=== PATIENT | male | born 1950 | race Caucasian/White ===

== ENCOUNTER 2020-06-02 21:55 | Observation (INO) | payer MEDICARE, SELFPAY ==
[2020-06-02 21:57] VITALS: PULSE 73; RESP 12; O2SAT 90
[2020-06-02 21:58] VITALS: BP 133/73; PULSE 73; RESP 15; O2SAT 96
[2020-06-02 22:00] VITALS: BP 133/73; BP 134/75; PULSE 74; PULSE 76; RESP 12; RESP 16; O2SAT 97; O2SAT 98; BMI 42.3
[2020-06-02 22:17] LABS: Add Manual Diff / Slide Review NO; Basophils Absolute Auto 100 /uL (0-100); Basophils Percent Auto 0.9 % (0-2); Eosinophils Absolute Auto 500 /uL (0-450); Eosinophils Percent Auto 3.9 % (2-4); Hematocrit 44.8 % (41-53); Lymphocytes Absolute Auto 2800 /uL (1100-4500); Lymphocytes Percent Auto 19.9 % (25-40); Mean Corpuscular HGB Conc 33.4 % (30-36); Mean Corpuscular Hemoglobin 28.3 PG (26-34); Mean Corpuscular Volume 84.6 fL (80-100); Monocytes Absolute Auto 1000 /uL (0-900); Monocytes Percent Auto 7.2 % (3-14); Neutrophils Absolute Auto 9700 /uL (1500-7000); Neutrophils Percent Auto 68.1 % (50-75); Platelet Count 295 X10^3/uL (150-400); Red Blood Cell Count 5.29 X10^6/uL (4.5-5.9); Red Cell Distribution Width 14.5 % (11.6-14.8); White Blood Cell Count 14.3 X10^3/uL (4.5-11.0)
[2020-06-02] MEDS: ONDANSETRON 4 MG/2 ML INJ IV (22:22)
[2020-06-02] MEDS: SODIUM CHLORIDE 0.9% 1,000 ML 1000 ML IV (22:22)
[2020-06-02 22:23] LABS: Alanine Aminotransferase 31 IU/L (<50); Albumin 4.8 g/dL (3.5-5.0); Albumin Globulin Ratio 1.3 (1.0-2.8); Alkaline Phosphatase 74 U/L (38-126); Aspartate Aminotransferase 33 IU/L (17-59); Bilirubin Total 0.5 mg/dL (0.2-1.3); Blood Urea Nitrogen 23 mg/dL (9-20); Calcium 10.5 mg/dL (8.4-10.2); Carbon Dioxide 26 mmol/L (22-32); Chloride 101 mmol/L (98-107); Estimated Glomerular Filt Rate 55.4 mL/min (>60); Globulin 3.6 g/dL (1.7-4.1); Glucose 111 mg/dL (80-110); HEMOLYSIS 15 (0-50); Lipase 481 U/L (23-300); Magnesium 2.1 mg/dL (1.6-2.3); Potassium 4.1 mmol/L (3.4-5.1); Sodium 138 mmol/L (137-145); Total Protein 8.4 g/dL (6.3-8.2)
[2020-06-02 22:30] VITALS: BP 140/65; PULSE 79; RESP 20; O2SAT 95
[2020-06-02 22:34] LABS: Troponin I < 0.012 ng/mL (0.01-0.034)
[2020-06-02 23:00] VITALS: BP 133/62; PULSE 77; RESP 18; O2SAT 95
[2020-06-02 23:30] VITALS: BP 120/57; PULSE 79; RESP 18; O2SAT 97
--- NOTE | 2020-06-02 23:56 | ED.GENADULT ---
HPI - General Adult General Chief complaint: Syncope Stated complaint: Near syncope Time Seen by Provider: 06/02/20 22:06 History of Present Illness HPI narrative: 69-year-old gentleman with a history of diabetes and hypertension presents after having an episode of vomiting, near-syncope and then diarrhea. He notes having diarrhea yesterday and feeling a little bit off. Today he got a meal from [employer] and was eating it at home(they are currently camping and in a motor home) and became significantly nauseated large volume emesis and then felt that he was going to have a bowel movement. Stood up to walk to the bathroom and felt like he was going to pass out so he laid down on the ground. 911 was called and initial blood pressure was 50/palp. He denies fevers, cough, chest pain, dyspnea, wheezing, focal weakness, increased lower extremity edema or orthopnea. As they have been vacationing recently he has not been checking blood sugars over the last couple of days. Related Data Home Medications Medication Instructions Recorded Confirmed amlodipine 10 mg PO DAILY 06/03/20 06/03/20 benazepril 40 mg PO DAILY 06/03/20 06/03/20 glipizide 5 mg PO 4-6XD 06/03/20 06/03/20 metformin 1,500 mg PO DAILY 06/03/20 06/03/20 metoprolol succinate 50 mg PO DAILY 06/03/20 06/03/20 spironolacton-hydrochlorothiaz 25 tab PO BID 06/03/20 06/03/20 tamsulosin 0.4 mg PO DAILY 06/03/20 06/03/20 zolpidem 5 mg PO DAILY 06/03/20 06/03/20 Allergies Allergy/AdvReac Type Severity Reaction Status Date / Time No Known Drug Allergies Allergy Verified 06/02/20 22:21 Review of Systems Review of Systems Narrative: Pertinent positive and negative findings as per HPI Remainder of review of systems is otherwise unremarkable for Constitutional: Fevers, chills, ENT: No sore throat, neck pain, ear pain : Dysuria, hematuria, flank pain MS: Muscle weakness, numbness, joint swelling or warmth Skin: Rashes, nonhealing lesions Patient History Medical History BPH (benign prostatic hyperplasia) (Acute) Diabetes (Acute) Hypertension (Acute) Osteoarthritis, knee (Acute) Surgical History History of transurethral resection of prostate (Acute) Family History (Updated 06/03/20 @ 03:44 by CARLEEN Membreno) Father Heart disease Atrial fibrillation Pacemaker Mother Cancer Smoker Sister Atrial fibrillation Daughter Atrial fibrillation Social History household members: family and friend(s) Smoking Status: Never smoker alcohol intake: current Exam Narrative Exam Narrative: General: Morbidly obese, in no acute distress. Able to give a complete and coherent history. Well-nourished well-developed HEENT: Moist mucous membranes, normal sclera with reactive pupils, Neck: No JVD, supple Respiratory: Lungs are clear to auscultation, no wheezing no rales no rhonchi. Full and symmetrical air movement Cardiac: Regular rate and rhythm no murmurs no bruits Abdomen: Soft nontender good bowel tones, no flank pain Skin: Warm and dry, no rashes Neurologic: Grossly neurologically intact with no obvious asymmetries or abnormalities Extremities: No trauma, well perfused Psych: Cooperative, appropriate insight and affect Initial Vital Signs Initial Vital Signs: Vital Signs Pulse Rate 73 06/02/20 21:57 Respiratory Rate 12 06/02/20 21:57 Pulse Oximetry 90 L 06/02/20 21:57 Course Orders Ordered: ED Orders 06/02/20 21:54 Complete Blood Count AUTO DIFF Stat Comprehensive Metabolic Panel Stat Lipase Stat Magnesium Stat Troponin I Stat 06/02/20 21:58 EKG-12 Lead Routine 06/03/20 00:22 GI Panel (Film Array) Stat Acetaminophen (Tylenol) 650 mg PO Q6HR PRN PRN Reason: Fever/Mild Pain (1-3) Benazepril HCl (Lotensin) 40 mg PO DAILY [facility] Dextrose (D50w) 25 gm IV PRN PRN; Protocol PRN Reason: Hypoglycemia Enoxaparin Sodium (Lovenox) 40 mg SUBCUT DAILY [facility] Sodium Chloride (Normal Saline 0.9%) 1,000 mls @ 100 mls/hr IV CONT ARIELA Last Admin: 06/03/20 02:44 Dose: 100 mls/hr Documented by: KGALLAG Insulin Aspart (Novolog Flexpen) 0 unit SUBCUT ACHS ARIELA; Protocol Metoprolol Succinate (Toprol Xl) 50 mg PO DAILY [facility] Naloxone HCl (Narcan) 0.2 mg IV Q2MIN PRN PRN Reason: Opiate Reversal Ondansetron HCl (Zofran) 4 mg IV Q8HR PRN PRN Reason: Nausea And Vomiting Tamsulosin HCl (Flomax) 0.4 mg PO DAILY [facility] Vancomycin HCl (Vancomycin) 125 mg PO Q6H ARIELA Last Admin: 06/03/20 02:44 Dose: 125 mg Documented by: TYEAG Zolpidem Tartrate (Ambien) 5 mg PO BEDTIME ARIELA Discontinued Medications Sodium Chloride (Normal Saline 0.9%) 1,000 mls @ 1,000 mls/hr IV BOLUS ONE Stop: 06/02/20 23:05 Last Infusion: 06/03/20 01:00 Dose: 0 mls/hr Documented by: Admin: 06/02/20 22:22 Dose: 1,000 mls/hr Documented by: MARIETTA Sodium Chloride (Normal Saline 0.9%) 1,000 mls @ 150 mls/hr IV CONT ARIELA Last Infusion: 06/03/20 01:51 Dose: 0 mls/hr Documented by: Admin: 06/03/20 00:50 Dose: 150 mls/hr Documented by: MARIETTA Ondansetron HCl (Zofran) 4 mg IV NOW ONE Stop: 06/02/20 22:07 Last Admin: 06/02/20 22:22 Dose: 4 mg Documented by: MARIETTA Vital Signs Vital signs: Vital Signs - 8 hr 06/02/20 21:57 06/02/20 21:58 06/02/20 22:00 Pulse Rate 73 73 76 Respiratory Rate 12 15 12 Blood Pressure 133/73 134/75 Pulse Oximetry 90 L 96 98 06/02/20 22:30 06/02/20 23:00 06/02/20 23:30 Pulse Rate 79 77 79 Respiratory Rate 20 18 18 Blood Pressure 140/65 133/62 120/57 L Pulse Oximetry 95 95 97 06/03/20 00:00 06/03/20 00:30 06/03/20 00:43 Pulse Rate 78 90 92 H Respiratory Rate 26 H 20 29 H Blood Pressure 113/56 L 140/68 Pulse Oximetry 92 95 06/03/20 01:00 06/03/20 01:30 Pulse Rate 80 77 Respiratory Rate 22 25 H Blood Pressure 116/56 L 107/59 L Pulse Oximetry 91 92 Medical Decision Making Medical Records Medical records reviewed: Yes I reviewed the patient's medical records. Lab Data Lab results reviewed: Yes I reviewed the patient's lab results. Lab results narrative: C diff positive Result diagrams: 06/02/20 21:54 06/02/20 21:54 Labs: Lab Results 06/02/20 06/02/20 06/02/20 Range/Units 21:54 21:54 23:26 WBC 14.3 H (4.5-11.0) X10^3/uL RBC 5.29 (4.5-5.9) X10^6/uL Hgb 15.0 (13.5-17.5) g/dL Hct 44.8 (41-53) % MCV 84.6 (80-100) fL MCH 28.3 (26-34) PG MCHC 33.4 (30-36) % RDW 14.5 (11.6-14.8) % Plt Count 295 (150-400) X10^3/uL Neut % (Auto) 68.1 (50-75) % Lymph % (Auto) 19.9 L (25-40) % [place] % (Auto) 7.2 (3-14) % Eos % (Auto) 3.9 (2-4) % Baso % (Auto) 0.9 (0-2) % Neut # (Auto) 9700 H (4395-0382) /uL Lymph # (Auto) 2800 (6784-1006) /uL [place] # (Auto) 1000 H (0-900) /uL Eos # (Auto) 500 H (0-450) /uL Baso # (Auto) 100 (0-100) /uL Sodium 138 (137-145) mmol/L Potassium 4.1 (3.4-5.1) mmol/L Chloride 101 (98-107) mmol/L Carbon Dioxide 26 (22-32) mmol/L BUN 23 H (9-20) mg/dL Creatinine 1.28 H (0.66-1.25) mg/dL Estimated GFR 55.4 L (>60) mL/min BUN/Creatinine Ratio 18.0 (6-22) Glucose 111 H (80-110) mg/dL Calcium 10.5 H (8.4-10.2) mg/dL Magnesium 2.1 (1.6-2.3) mg/dL Total Bilirubin 0.5 (0.2-1.3) mg/dL AST 33 (17-59) IU/L ALT 31 (<50) IU/L Alkaline Phosphatase 74 (38-126) U/L Troponin I < 0.012 (0.01-0.034) ng/mL Total Protein 8.4 H (6.3-8.2) g/dL Albumin 4.8 (3.5-5.0) g/dL Globulin 3.6 (1.7-4.1) g/dL Albumin/Globulin Ratio 1.3 (1.0-2.8) Lipase 481 H (23-300) U/L Stl C. cayetanensis PCR Not detected (Not Detect) Stool Rotavirus (PCR) Not detected (Not Detect) Stool Adenovirus (PCR) Not detected (Not Detect) Stool Astrovirus (PCR) Not detected (Not Detect) Stool Cryptosporidium PCR Not detected (Not Detect) Stl E.coli Shiga Tox PCR Not detected (Not Detect) St Sh/Enteroin Ecoli PCR Not detected (Not Detect) Stool E coli O157 PCR Not Reportable Stl Enterotoxigenic E PCR Not detected (Not Detect) Stool EPEC (PCR) Detected H (Not Detect) Stl E. histolytica PCR Not detected (Not Detect) Stool Giardia Lamblia PCR Not detected (Not Detect) Stool Sapovirus (PCR) Not detected (Not Detect) Stl P. shigelloides PCR Not detected (Not Detect) St Y.enterocolitica PCR Not detected (Not Detect) Stool Vibrio (PCR) Not detected (Not Detect) Stl Vibrio cholerae PCR Not detected (Not Detect) Stl Enteroaggr Ecoli PCR Not detected (Not Detect) Stl Norovirus GI/GII PCR Not detected (Not Detect) Campylobacter (PCR) Not detected (Not Detect) C. difficile Tox (PCR) Detected H (Not Detect) COVID-19 PCR (Negative) Salmonella (PCR) Not detected (Not Detect) 06/03/20 Range/Units 00:23 WBC (4.5-11.0) X10^3/uL RBC (4.5-5.9) X10^6/uL Hgb (13.5-17.5) g/dL Hct (41-53) % MCV (80-100) fL MCH (26-34) PG MCHC (30-36) % RDW (11.6-14.8) % Plt Count (150-400) X10^3/uL Neut % (Auto) (50-75) % Lymph % (Auto) (25-40) % [place] % (Auto) (3-14) % Eos % (Auto) (2-4) % Baso % (Auto) (0-2) % Neut # (Auto) (2256-9907) /uL Lymph # (Auto) (8675-6517) /uL [place] # (Auto) (0-900) /uL Eos # (Auto) (0-450) /uL Baso # (Auto) (0-100) /uL Sodium (137-145) mmol/L Potassium (3.4-5.1) mmol/L Chloride (98-107) mmol/L Carbon Dioxide (22-32) mmol/L BUN (9-20) mg/dL Creatinine (0.66-1.25) mg/dL Estimated GFR (>60) mL/min BUN/Creatinine Ratio (6-22) Glucose (80-110) mg/dL Calcium (8.4-10.2) mg/dL Magnesium (1.6-2.3) mg/dL Total Bilirubin (0.2-1.3) mg/dL AST (17-59) IU/L ALT (<50) IU/L Alkaline Phosphatase (38-126) U/L Troponin I (0.01-0.034) ng/mL Total Protein (6.3-8.2) g/dL Albumin (3.5-5.0) g/dL Globulin (1.7-4.1) g/dL Albumin/Globulin Ratio (1.0-2.8) Lipase (23-300) U/L Stl C. cayetanensis PCR (Not Detect) Stool Rotavirus (PCR) (Not Detect) Stool Adenovirus (PCR) (Not Detect) Stool Astrovirus (PCR) (Not Detect) Stool Cryptosporidium PCR (Not Detect) Stl E.coli Shiga Tox PCR (Not Detect) St Sh/Enteroin Ecoli PCR (Not Detect) Stool E coli O157 PCR Stl Enterotoxigenic E PCR (Not Detect) Stool EPEC (PCR) (Not Detect) Stl E. histolytica PCR (Not Detect) Stool Giardia Lamblia PCR (Not Detect) Stool Sapovirus (PCR) (Not Detect) Stl P. shigelloides PCR (Not Detect) St Y.enterocolitica PCR (Not Detect) Stool Vibrio (PCR) (Not Detect) Stl Vibrio cholerae PCR (Not Detect) Stl Enteroaggr Ecoli PCR (Not Detect) Stl Norovirus GI/GII PCR (Not Detect) Campylobacter (PCR) (Not Detect) C. difficile Tox (PCR) (Not Detect) COVID-19 PCR Negative (Negative) Salmonella (PCR) (Not Detect) ECG Data Attestation: I personally reviewed and interpreted this ECG as follows: Interpretation: Sinus rhythm at a rate of 73 Normal axis, normal intervals Nonspecific ST T wave changes without acute ischemia MDM Narrative Medical decision making narrative: 69-year-old gentleman currently traveling in his camper van with a syncopal episode today. Episode of diarrhea yesterday more continuing this afternoon and in the emergency room with a single episode of vomiting. Diarrhea has been sent for PCR testing and is watery and smell suggests C diff may be a possible diagnosis. He has not been on antibiotics recently. Baseline labs are not available for comparison however with a slightly elevated white blood cell count and a creatinine at 1.28 with a near syncopal episode and continue prolific diarrhea will suggest that he spent a night in the hospital for hydration and re-evaluation of creatinine in the morning. Patient is amenable to this. Stool sample does come back positive for Clostridium difficile Discharge Plan Departure Patient Disposition: Admitted as Observation Clinical Impression: Clostridium difficile diarrhea, Vasovagal syncope Discharge Date/Time: 06/03/20 01:55 Admit Date/Time: 06/03/20 01:41 Admit Provider: Anthony Mclean
[2020-06-03] VITALS (13 sets, daily range): BP systolic 95–143; BP diastolic 31–74; PULSE 62–92; RESP 16–29; TEMP 36.2–36.8; O2SAT 91–97; BMI 42.3
[2020-06-03] MEDS: SODIUM CHLORIDE 0.9% 1,000 ML 150 ML IV (00:50)
[2020-06-03 01:28] LABS: COVID19 -Nasal RAPID Negative (Negative)
[2020-06-03 01:52] LABS: Campylobacter Not Detected (Not Detect); Clostridium difficile toxin AB Detected (Not Detect); Enteroaggregative E.coli Not Detected (Not Detect); Enteropathogenic E.coli Detected (Not Detect); Enterotoxigenic E.coli It/st Not Detected (Not Detect); Plesiomonsa shigelloides Not Detected (Not Detect); Salmonella Not Detected (Not Detect); Vibrio Not Detected (Not Detect); Vibrio cholerae Not Detected (Not Detect); Yersinia enterocolitica Not Detected (Not Detect)
[2020-06-03 01:53] LABS: Adenovirus F 40/41 Not Detected (Not Detect); Astrovirus Not Detected (Not Detect); Cryptosporidium Not Detected (Not Detect); Cyclospora cayetanensis Not Detected (Not Detect); Entamoeba histolytica Not Detected (Not Detect); Giardia lamblia Not Detected (Not Detect); Norovirus GI/GII Not Detected (Not Detect); Rotavirus A Not Detected (Not Detect); Sapovirus Not Detected (Not Detect); Shiga-like toxin-prod E.coli Not Detected (Not Detect); Shigella/Enteroinvasive E.coli Not Detected (Not Detect)
[2020-06-03] MEDS: SODIUM CHLORIDE 0.9% 1,000 ML 100 ML IV ×2 (02:44→10:46)
[2020-06-03] MEDS: VANCOMYCIN 125 MG CAPSULE PO ×3 (02:44→13:28)
--- NOTE | 2020-06-03 03:41 | PM.HP.1 ---
History of Present Illness History of Present Illness Date Patient Seen: 06/03/20 Time Patient Seen: 03:18 Chief complaint: Near syncope Narrative: Mr. Gus Shah is a 69-year-old male with a past medical history significant for hypertension, non insulin-dependent diabetes type 2, BPH and osteoarthritis of the knees who presents to the ER via EMS with a near syncopal episode and profuse diarrhea. The patient endorses a history of an episode of large diarrhea stool last night and was unable to make it to the bathroom. He states he felt better today until he was at a fast food restaurant and felt nauseated and went outside to throw up which time he felt hot and diaphoretic and laid on the ground at which time he had another large diarrhea stools are healing himself. He states after a few minutes a laying on the ground he felt better. He reports not passing out and can remember events. He digitally reports about 3-4 weeks ago had his episode of diarrhea lasting couple of days that resolved spontaneously with dietary change and increase in fiber. Upon arrival of EMS the patient is found to be hypotensive with initial pressure of 50 by palpation. Upon arrival to the emergency department patient had heart rate of 79, blood pressure 140/65, respirations 20 saturating 95% on room air. No imaging was obtained. Twelve lead EKG reveals normal sinus rhythm at a rate of 73 without ectopy or block, no evidence of ischemia or infarct. On laboratory analysis the patient has white count of 14.3, hemoglobin of 15.0 and hematocrit of 44.8, platelets of 295. His electrolytes are all within normal range and has a BUN of 23 and a creatinine of 128. His nonfasting glucose is 111. Magnesium is 2.1. His liver functions are all within normal limits his lipase of 481 and albumin of 4.8. Troponin is less than 0.012. A stool PCR is obtained detecting C difficile and EPEC. In the ER the patient receives normal saline and Zofran. He is admitted to the medicine service for C difficile and EPEC infection. Patient History Medical History BPH (benign prostatic hyperplasia) (Acute) Diabetes (Acute) Hypertension (Acute) Osteoarthritis, knee (Acute) Surgical History History of transurethral resection of prostate (Acute) Family & Social History Family History (Updated 06/03/20 @ 03:44 by CARLEEN Membreno) Father Heart disease Atrial fibrillation Pacemaker Mother Cancer Smoker Sister Atrial fibrillation Daughter Atrial fibrillation Social History: household members family,friend(s) Prior Living Arrangements Safety & Behavioral: Feels Safe in Current Yes Environment Been Physically Hurt or No Threatened By a Person Suicidal Ideation Description None Suicide Plan Description No Plan Tobacco & Substance use: Smoking Status Never smoker alcohol intake current alcohol intake frequency a few times a month Substance Use Type does not use Comment: The patient is currently traveling in an and lives with his daughter and [facility]. 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 Alcohol: A glass of wine every other week. Substance use: Patient denies recreational pharmaceuticals herbal or cannabis products. Advanced directives: In direct discussion with the patient states his wish to be FULL CODE. He designates his daughter Lilly to be his surrogate decision maker. Meds Home Medications and Allergies Home Medications Medication Instructions Recorded Confirmed Type amlodipine 10 mg PO DAILY 06/03/20 06/03/20 History benazepril 40 mg PO DAILY 06/03/20 06/03/20 History glipizide 5 mg PO 4-6XD 06/03/20 06/03/20 History metformin 1,500 mg PO DAILY 06/03/20 06/03/20 History metoprolol succinate 50 mg PO DAILY 06/03/20 06/03/20 History spironolacton-hydrochlorothiaz 25 tab PO BID 06/03/20 06/03/20 History tamsulosin 0.4 mg PO DAILY 06/03/20 06/03/20 History zolpidem 5 mg PO DAILY 06/03/20 06/03/20 History Allergies Allergy/AdvReac Type Severity Reaction Status Date / Time No Known Drug Allergies Allergy Verified 06/02/20 22:21 Review of Systems Review of Systems ROS: Yes All systems reviewed with the patient and are negative except as otherwise documented Exam Vital Signs (past 8 hours): - 06/02/20 21:57 06/02/20 21:58 06/02/20 22:00 Temperature Pulse Rate 73 73 76 Respiratory Rate 12 15 12 Blood Pressure 133/73 134/75 Pulse Oximetry 90 L 96 98 06/02/20 22:30 06/02/20 23:00 06/02/20 23:30 Temperature Pulse Rate 79 77 79 Respiratory Rate 20 18 18 Blood Pressure 140/65 133/62 120/57 L Pulse Oximetry 95 95 97 06/03/20 00:00 06/03/20 00:30 06/03/20 00:43 Temperature Pulse Rate 78 90 92 H Respiratory Rate 26 H 20 29 H Blood Pressure 113/56 L 140/68 Pulse Oximetry 92 95 06/03/20 01:00 06/03/20 01:30 06/03/20 02:08 Temperature Pulse Rate 80 77 80 Respiratory Rate 22 25 H 16 Blood Pressure 116/56 L 107/59 L Pulse Oximetry 91 92 97 06/03/20 02:19 Temperature 97.8 F Pulse Rate 77 Respiratory Rate 18 Blood Pressure 143/74 H Pulse Oximetry 96 Oxygen Delivery Method Room Air Oxygen Flow Rate 0 Narrative Exam Narrative: GENERAL APPEARANCE: well developed, morbidly obese male with BMI of 51.2 was resting comfortably in no acute distress. HEENT: Normocephalic, PERRLA, conjunctiva clear, EOMs intact without nystagmus, no sinus tenderness to percussion, no rhinorrhea, mucous membranes are moist and pink without lesions or exudate. NECK/THYROID: neck supple, no JVD, no carotid bruit, no thyromegaly, trachea midline. LYMPH NODES: no cervical or supraclavicular lymphadenopathy. SKIN: [place], warm and dry, no visible lesions, rashes, ulcerations or petechiae. HEART: regular rate and rhythm, S1-S2, 1/6 systolic murmur right upper sternal border, no rubs or gallops, brisk capillary refill, no edema LUNGS: Diminished bed clear to auscultation bilaterally, no coarseness crackles or wheezing, no cough present CHEST: Symmetrical movement, no accessory muscle use, good tidal volume. ABDOMEN: Soft, round and obese, no abdominal tenderness, no guarding or peritoneal signs, no organomegaly, no flank or suprapubic tenderness, active bowel tones. BACK: Normal curvature, nontender to palpation, no CVA tenderness on percussion EXTREMITIES: moves all extremities, strength is 5/5 and symmetrical, no deformities or joint effusions. 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 PSYCH: Good judgment, good insight, linear thought process, cooperative, appropriate with stable behavior Objective Labs Result Diagrams: 06/02/20 21:54 06/02/20 21:54 Labs: Laboratory Results - last 24 hr 06/02/20 06/02/20 06/02/20 21:54 21:54 23:26 WBC 14.3 H RBC 5.29 Hgb 15.0 Hct 44.8 MCV 84.6 MCH 28.3 MCHC 33.4 RDW 14.5 Plt Count 295 Neut % (Auto) 68.1 Lymph % (Auto) 19.9 L [place] % (Auto) 7.2 Eos % (Auto) 3.9 Baso % (Auto) 0.9 Neut # (Auto) 9700 H Lymph # (Auto) 2800 [place] # (Auto) 1000 H Eos # (Auto) 500 H Baso # (Auto) 100 Sodium 138 Potassium 4.1 Chloride 101 Carbon Dioxide 26 BUN 23 H Creatinine 1.28 H Estimated GFR 55.4 L BUN/Creatinine Ratio 18.0 Glucose 111 H Calcium 10.5 H Magnesium 2.1 Total Bilirubin 0.5 AST 33 ALT 31 Alkaline Phosphatase 74 Troponin I < 0.012 Total Protein 8.4 H Albumin 4.8 Globulin 3.6 Albumin/Globulin Ratio 1.3 Lipase 481 H Stl C. cayetanensis PCR Not detected Stool Rotavirus (PCR) Not detected Stool Adenovirus (PCR) Not detected Stool Astrovirus (PCR) Not detected Stool Cryptosporidium PCR Not detected Stl E.coli Shiga Tox PCR Not detected St Sh/Enteroin Ecoli PCR Not detected Stool E coli O157 PCR Not Reportable Stl Enterotoxigenic E PCR Not detected Stool EPEC (PCR) Detected H Stl E. histolytica PCR Not detected Stool Giardia Lamblia PCR Not detected Stool Sapovirus (PCR) Not detected Stl P. shigelloides PCR Not detected St Y.enterocolitica PCR Not detected Stool Vibrio (PCR) Not detected Stl Vibrio cholerae PCR Not detected Stl Enteroaggr Ecoli PCR Not detected Stl Norovirus GI/GII PCR Not detected Campylobacter (PCR) Not detected C. difficile Tox (PCR) Detected H COVID-19 PCR Salmonella (PCR) Not detected 06/03/20 00:23 WBC RBC Hgb Hct MCV MCH MCHC RDW Plt Count Neut % (Auto) Lymph % (Auto) [place] % (Auto) Eos % (Auto) Baso % (Auto) Neut # (Auto) Lymph # (Auto) [place] # (Auto) Eos # (Auto) Baso # (Auto) Sodium Potassium Chloride Carbon Dioxide BUN Creatinine Estimated GFR BUN/Creatinine Ratio Glucose Calcium Magnesium Total Bilirubin AST ALT Alkaline Phosphatase Troponin I Total Protein Albumin Globulin Albumin/Globulin Ratio Lipase Stl C. cayetanensis PCR Stool Rotavirus (PCR) Stool Adenovirus (PCR) Stool Astrovirus (PCR) Stool Cryptosporidium PCR Stl E.coli Shiga Tox PCR St Sh/Enteroin Ecoli PCR Stool E coli O157 PCR Stl Enterotoxigenic E PCR Stool EPEC (PCR) Stl E. histolytica PCR Stool Giardia Lamblia PCR Stool Sapovirus (PCR) Stl P. shigelloides PCR St Y.enterocolitica PCR Stool Vibrio (PCR) Stl Vibrio cholerae PCR Stl Enteroaggr Ecoli PCR Stl Norovirus GI/GII PCR Campylobacter (PCR) C. difficile Tox (PCR) COVID-19 PCR Negative Salmonella (PCR) Assessment & Plan Assessment & Plan narrative: This is a 69-year-old male patient with a history of hypertension, diabetes BPH and osteoarthritis who who experienced a near syncopal episode related to profuse diarrhea found to be secondary to C difficile and EPEC. 1. C difficile colitis, acute, present on admission, active. -patient with episode of diarrhea 3-4 weeks ago self resolving with dietary change developing profuse diarrhea stool last night and today resulting in near syncope. -the patient is presently traveling but denies questionable food sources and has had no recent exposure to antibiotics. -elevated white count at 14.3 with increased neutrophils at 9700, stool PCR detect C difficile. -order vancomycin 125 mg orally 4 times daily. -rehydrate with normal saline at 100 cc/hour. -will recheck CBC in the morning 2. Enteropathogenic Escherichia coli diarrhea, present on admission, active. -patient with perfuse watery diarrhea, PCR positive for C difficile and enteropathogenic E coli. -see to seal treated as above, current recommendation is no antibiotic therapy for EPEC. -rehydrate the patient with normal saline 100 cc per hour. -strict I&Os, orthostatic vital signs in the morning. 3. Hypertension, chronic, stable -patient initially profoundly hypotensive upon arrival of EMS with pressure 50 by palpation. Pressure quickly improved and was in the 130s upon arrival to the emergency department. -will continue home regimen of amlodipine 10 mg, benazepril 40 mg and metoprolol succinate 50 mg daily. 4. Diabetes type 2, [id number], with neuropathy, stable. -blood sugar is 111 on admission labs. -patient typically takes metformin 1500 mg in the morning and 500 mg at night. -ordered fingerstick blood sugars a.c. and HS with correctional insulin low-dose scale. -will monitor chemistries and obtain a hemoglobin A1c. 5. Benign prostatic hypertrophy, chronic, stable -patient denies urinary symptoms. -continue home regimen of tamsulosin 0.4 mg daily. Isolation: Contact precautions. VTE prophylaxis: Bilateral SCDs, enoxaparin IV fluid: Normal saline 100 cc/hour Diet: Medium constant carbohydrate, heart healthy Code status: FULL CODE, the patient's daughter Cat yadav is designated DPOA and surrogate decision maker. The patient is admitted to the hospital due to the severity of his symptoms, risk for complications and adverse events. The patient is admitted as observation with expected length of stay to be less than 2 midnights. COVID-19 COVID-19 status: Negative Result date/Date tested (Pos, Neg/Pending): 06/03/20 Scores GCS Anderson coma scale eye opening: Spontaneous Anderson coma scale verbal response: Orientated Anderson coma scale motor response: Obey commands Leila coma scale total score: 15
[2020-06-03 05:34] LABS: Add Manual Diff / Slide Review NO; Basophils Absolute Auto 100 /uL (0-100); Basophils Percent Auto 0.6 % (0-2); Eosinophils Absolute Auto 300 /uL (0-450); Eosinophils Percent Auto 2.3 % (2-4); Hematocrit 38.4 % (41-53); Hemoglobin 12.8 g/dL (13.5-17.5); Lymphocytes Absolute Auto 2300 /uL (1100-4500); Lymphocytes Percent Auto 17.4 % (25-40); Mean Corpuscular HGB Conc 33.2 % (30-36); Mean Corpuscular Hemoglobin 28.2 PG (26-34); Mean Corpuscular Volume 84.7 fL (80-100); Monocytes Absolute Auto 800 /uL (0-900); Monocytes Percent Auto 5.8 % (3-14); Neutrophils Absolute Auto 9600 /uL (1500-7000); Neutrophils Percent Auto 73.9 % (50-75); Platelet Count 260 X10^3/uL (150-400); Red Blood Cell Count 4.54 X10^6/uL (4.5-5.9); Red Cell Distribution Width 14.7 % (11.6-14.8)
[2020-06-03 05:41] LABS: Hemoglobin A1C% w Est Avg Glu 7.3 % (4.0-6.0)
[2020-06-03 05:43] LABS: BUN Creatinine Ratio 23.6 (6-22); Blood Urea Nitrogen 26 mg/dL (9-20); Carbon Dioxide 25 mmol/L (22-32); Chloride 105 mmol/L (98-107); Estimated Glomerular Filt Rate > 60.0 mL/min (>60); Glucose 194 mg/dL (80-110); HEMOLYSIS < 15 (0-50); Potassium 4.1 mmol/L (3.4-5.1); Sodium 138 mmol/L (137-145)
--- NOTE | 2020-06-03 06:12 | PC.NURSE ---
Pt admitted to floor as AxOx4, Vitals stable, tolerating room air, CPAP HS. Kept on Contact/Enteric precautions for C-Diff+ Complains of mild lower abdominal pain, denying pain med need. Tele: NSR, 1st AVB Pt had multiple episodes of diarrhea in ED. none here so far. NS@100mL/hr Hx of falls, states using a cane sometimes at home Abrasion to left knee; moist/macerated groin area with mild pink rash
[2020-06-03] MEDS: INSULIN ASPART 100 UNIT/ML INSULN PEN SUBCUT ×2 (08:37→11:56)
[2020-06-03] MEDS: TAMSULOSIN 0.4 MG CAPSULE PO (08:38)
[2020-06-03] MEDS: METOPROLOL ER 50 MG TABLET PO (08:38)
[2020-06-03] MEDS: BENAZEPRIL 20 MG TABLET 40 MG PO (08:38)
[2020-06-03] MEDS: ENOXAPARIN 40 MG/0.4 ML SYRINGE SUBCUT (08:40)
--- NOTE | 2020-06-03 10:25 | PC.NURSE ---
Addendum entered by Ivania Bo R.N. 06/03/20 14:45: Discharge summary packet reviewed by Hemanth Rodriguez with pt. All questions answered, no further voiced concerns. Pt left unit at 1415 via wheelchair escorted by CYLINDER LOADER. Unwitnessed by this RN, pt's friends are present to pickling drum operator pt. Original Note: Day Shift- Pt sitting up on edge of bed for breakfast, asymptomatic, denies light-headedness or dizziness. O2 sat 95% on RA. BP this AM was 116/56, Pulse 62, plan for orthostatic BP/Pulse at 1200 vitals. Blood pressure medication held this AM until orthostatic vital signs done. Pt states he normally takes his Metoprolol at 2200, takes his amlodipine, spiralactone, and Benazepril around 1200. At home, pt normal awakens around 1000. Will continue to monitor. Spoke with pt's daughter Rebeca via pt's cell phone in his room around 0845, update/education given regarding taking precautions with Pt's DX of C-DIFF.
--- NOTE | 2020-06-03 12:22 | CM.DANOTE ---
Patient is a 69 year old male who was admitted on 06/03/20 for Near Syncope. Pt has [employer] and [employer] for insurance and his PCP is not listed as [place]. EMR was reviewed. Per MD, pt with CDiff positive and currently getting fluids and having ongoing orthostatic issues. Per RN, pt seems to be stable sitting up in chair and they will ambulate him today and check vitals to determine if his bp is stable. Pt able to transition to oral abx for CDiff. SW met bedside with pt and explained role and he confirms that he lives in [place] where his Dtr/DPOA Lisa lives and has half of his belongings in [place] and half in [place] where other family lives. Pt is currently traveling in his RV to see friends and pick pulling machine operator the rest of his belongings that could not be moved during his first big move to [place]. Pt is active and independent with ADL's and has been crabbing with local friends and has a cane that he does not usually need. Pt denies any hx of HH or SNF. Pt's preference is to d/c today if stable with friend's to provide transport to their house/another friend's house in [place] with Dtr flying in to [place] in a couple days and will pick pulling machine operator the pt and help drive the RV to their final destination. Dtr has been educated by RN via phone on CDiff protocol and pt's preference for Pharmacy is [facility]. RN agreeable with sending Rx to [email or web address] and confirming they can fill his new med. Plan: SW to follow for possible d/c with supportive friends either later today or tomorrow once vitals stabilize. SW to follow for any further identified d/c needs. LAWRENCE Cline Discharge Planning/Care Management CM Discharge Assessment Start: 06/03/20 12:20 Freq: Status: Active Protocol: Document 06/03/20 12:20 BF (Rec: 06/03/20 12:22 BF [id number]) Discharge Planning Assessment Assigned Worm Grower LAWRENCE Montano/Assigned Designee Name Angel Gonzalez Contact Information [phone] Advance Directives? No Advance Directives on File No History Provided By Patient,Medical Record Has Patient been admitted in last 30 No days? Prior Living Arrangements House Household Members family,friend(s) Type of transporation used prior to Drives own vehicle admit Independent with ADL's Yes Is patient alert and oriented? Yes Needs Assistance With Managing Medications Caregiver for Another No Barriers to Discharge No Discharge Plan Home Transportation Arrangement Friend to provide transport at d/c Referrals Initiated None needed Whiteboard Updated in Patient Room with Yes name and ext. # of Worm Grower Review Status In Process Please Provide Date Initial DC 06/03/20 Assessment Was Performed Next Review Type Continued Stay Review
== END 2020-06-03 14:15 | disposition home or self-care (01) ==
LOC: ED 06-03 00:57 → AC 06-03 01:42
PROVIDERS: Admitting Provider Nurse Practitioner Adult Health; Emergency Provider Emergency Medicine; Visit Provider Nurse Practitioner Adult Health
DX: A04.72 Enterocolitis due to Clostridium difficile, not specified as recurrent (principal); A09 Infectious gastroenteritis and colitis, unspecified; A04.0 Enteropathogenic Escherichia coli infection; I10 Essential (primary) hypertension; E11.9 Type 2 diabetes mellitus without complications; Z79.84 Long term (current) use of oral hypoglycemic drugs; N40.0 Benign prostatic hyperplasia without lower urinary tract symptoms; Z11.59 Encounter for screening for other viral diseases
CPT/HCPCS: 36415; 80048; 80053; 82962; 83036; 83690; 83735; 84484; 85025; 87507; 87635; 93005; 94660; 94762; 96361; 96372; 96374; 99284; G0378; J1650; J2405